=== PATIENT | female | born 1950 | race Caucasian/White ===

== ENCOUNTER 2017-06-28 20:34 | Emergency (ER) | payer OTHER ==
[2017-06-28 20:44] VITALS: BP 146/72; BMI 37.5
--- NOTE | 2017-06-28 21:39 | DR.GENAD ---
HPI - PCP Primary Care Physician: DULCE CHOUDHARY WITH [facility] - Complaint/Symptoms Chief Complaint Doctors Comments: Pain, fullness and swelling hehind Lt.leg, noted today. The lt. foot has been swollen for a few days. She denies SOB or chest pain. Chief Complaint:: LEFT LEG SWOLLEN, HURTS BEDHIND KNEE. DENIES ANY ACCIDENT. LEFT LEG WITH EDEMA NOTED. NO REDNESS, OR WARMNESS TO TOUCH. - Nurses notes reviewed Nurses Notes Review: Yes - Source History Provided: Patient - Mode of Arrival Mode of Arrival: Ambulatory - Timing Onset of Chief Complaint: 06/28/17 PMH - PMH Past Medical History: Yes Past Medical History: Arthritis, COPD, Depression, GERD, Hypothyroidism, Sleep Apnea Past Medical History Comment: CPAP AT HOME Past Surgical History: Yes Surgical History: Cholecystectomy, [employer] Surgery, Hysterectomy, Ortho Surgery, Other Past Surgical History Comment: BOTTOM LEFT LUNG REMOVED - Family History History of Family Medical Conditions: Yes Family Medical History: Heart Failure Family Medical History Comment: KIDNEY DISEASE - Social History Does any household member use tobacco: No Alcohol Use: Occasionally Do you use any recreational Drugs:: No Lives With: Alone Lives Where: Home - infectious screening In the last 2 months have you had wt loss of >10#?: NO Have you had fever, night sweats or hemotysis?: No Have you traveled outside the country in the last 6 months?: No Isolation: Standard ROS - Review of Systems Constitutional: No Symptoms Reported Eyes: No Symptoms Reported ENTM: No Symptoms Reported Respiratoy: No Symptoms Reported Cardiovascular: No Symptoms Reported Gastrointestinal/Abdominal: No Symptoms Reported Genitourinary: No Symptoms Reported Neurological: No Symptoms Reported Musculoskeletal: Leg (pain in lt. leg.) Integumentary: No Symptoms Reported Hematologic/Lymphatic: No Symptoms Reported Endocrine: No Symptoms Reported Psychiatric: No Symptoms Reported All Other Systems: Reviewed and Negative PE - Vital Signs Vitals: Temperature 97.4 F Pulse Rate 88 Respiratory Rate 22 Blood Pressure 146/72 O2 Sat by Pulse Oximetry 98 - General Limitations: No Limitations General Appearance: Alert, In No Apparent Distress - Head Head Exam: Normal Inspection - Eyes Eye exam: Normal Appearance - ENT ENT Exam: Normal Exam - Neck Neck Exam: Normal Inspection - Chest Chest Inspection: Normal Inspection - Respiratory Respiratory Exam: Normal Lung Sounds Bilat - Cardiovascular Cardiovascular Exam: Regular Rate, Normal Rhythm, +S1, +S2 - Abdominal Exam Abdominal Exam: Normal Inspection, Normal Bowel Sounds, Soft - Extremities Extremities Exam: Normal Inspection (g), Full ROM, Calf Tenderness (lt. leg. ), Other (there is no erythema or palpable ropiness noted in the left leg.) - Back Back Exam: Normal Inspection - Neurologic Neurological Exam: Alert, Oriented X3 - Psychiatric Psychiatric Exam: Normal Affect, Normal Mood - Skin Skin Exam: Warm, Dry, Intact, Normal Color ROR - XRAY XRAY Interpreted by: Radiologist (LLE venous doppler- negative for DVT) - Diagnosis Discharge Problem: Pedal edema, Leg pain, left - Discharge Plan Disposition: 01 HOME, SELF-CARE Condition: Stable - Follow ups/Referrals Follow ups/Referrals: DEMARCO BOLDEN [Primary Care Provider] - 3 days - Instructions Instructions: Edema
[2017-06-28] MEDS ORDERED: LOVENOX INJ 40 MG SYR SC ONE (22:00)
--- NOTE | 2017-06-28 22:03 | VAS ---
History: Left leg and foot swelling Study: Left lower extremity venous doppler Technique: Multiple mejia scale and color doppler images of the deep venous system were obtained of th e left lower extremity. Findings: The deep venous system of the left lower extremity was evaluated from the level of the comm on femoral vein through the popliteal vein. Normal color flow and augmentation is observed. In additi on, normal compression is seen throughout the deep venous system of the left lower extremity. Impression: Negative for DVT. Reported By:
[2017-06-28] MEDS ORDERED: LASIX PO ONE (22:18)
[2017-06-28] MEDS ORDERED: LASIX ONE (22:18)
[2017-06-29] MEDS ORDERED: LOVENOX INJ 40 MG SYR SC ONE (21:47)
== END 2017-06-28 22:30 | disposition home or self-care (01) ==
LOC: ER 20:55
DX: R60.9 Edema, unspecified (principal); M79.605 Pain in left leg
CPT/HCPCS: 93971; 96372; 99283; J1650